=== PATIENT | male | born 1960 | race Caucasian/White ===

== ENCOUNTER 2025-03-07 10:09 | Outpatient (REF) | payer BC, SELFPAY ==
--- NOTE | ~2025-03-07 | MM_ITS ---
EXAMINATION: MM DIAGNOSTIC DIGITAL BREAST TOMOSYNTHESIS, BILATERAL CLINICAL INFORMATION: Patient had previous left upper outer quadrant redness and swelling which has since gone away patient is back to normal today. COMPARISON: Mammography: Comparison is made with relevant prior exams. TECHNIQUE: Digital breast mammography with tomosynthesis is performed in both the craniocaudal and mediolateral oblique views along with computer-aided detection (CAD). FINDINGS: Right: No suspicious masses calcifications or other abnormal findings. Left: There is trace retroareolar gynecomastia. Otherwise no suspicious masses calcifications or other abnormal findings. Results are discussed with the patient at time of visit. MM/MM tomosynthesis diagnostic BI IMPRESSION: Right: Negative. Left: Trace retroareolar gynecomastia. Benign. No other suspicious findings. ASSESSMENT: BI-RADS BI-RADS 2 - Benign Findings RECOMMENDATION: Recommend clinical evaluation and follow-up. Electronically signed by: Love Bernard DO 03/07/2025 11:28 AM EDT
--- OUTSIDE RECORDS SUMMARY | 2025-03-07 11:04 | XMS_ITS | Data Portability ---
Author Organization LORI Selvin [facility], [facility] Address [address] [place] [address] Care Team Providers Care Circus Trainer Name Role Phone DORA CHAMPION Primary Care Provider Assessment Encounter Date Assessment Date Assessment LastModified by Organization Details LastModified Time 03/24/2024 03/24/2024 Dx:rule out medial meniscal tear left knee Interval History:63-year-o ld gentle status post left knee arthroscopy about one half years ago complains of medial sided knee pain. Review of photos from surgery, no significant arthritic wear found. SocHx: nonsmoker, non drinker ROS: negative Past Medical/Surgical History/Meds/Yury rgies reviewed and charted. Physical Exam: afebrile, vital signs stable, in no apparent distress, oriented to person/place/time . Gait:symmetric skin: intact, no erythema. Heart RRR. Lungs clear Abdomen soft, nontender.mini leftKNEE: no redness, warmth, deformity Effusion estimated 0cc. Atrophy none Range of Motion 0-130 degrees. Strength 5/5 all muscle groups. Kaylyn negative. Pivot Shift negative Varus/Valgus/Post erior laxity testing: negative. Joint Line Tenderness: medial. Patellofemoral crepitus absent. Contralateral knee: no deformity, no effusion, full motion, no laxity, no joint line tenderness, no patellar crepitus. New Studies: radiographs show good preservation of joint space Impression:left knee medial meniscal tear Plan: 1.MRI ordered to rule out meniscal pathology, follow-up subsequent to discuss findings and options. [facility] speech recognition solutions executive security software was used to create portions of this document. An attempt at proofreading has been made to minimize errors. Please call for corrections. [email or web address] Not available 03/24/2024 15:24:46 10/17/2024 10/17/2024 Chief Complaint: Recurrent right shoulder pain status post previous right shoulder rotator cuff repair, recurrent left knee pain status post previous partial medial meniscectomy HPI: Patient is a 63-year-old active male who today regarding recurrent right shoulder pain over the past couple months. He is currently 15 months status post previous right shoulder arthroscopic rotator cuff repair and related procedures performed by myself back in June 2023. He did very well after that surgery. He has had some recurrent achiness to his shoulder with lifting activities. No new injury or trauma. He also has a history of previous left knee partial medial meniscectomy performed back in 2021 by my partner, Dr. Almeida. He did fairly well after that surgery, with recurrent left knee pain over the past year. Did review his operative photos from that surgery and there was a substantial tear requiring a significant loss of meniscal volume. I independently reviewed the MRI of the left knee from 2023 revealing chondral thinning to the mid weightbearing portion along with significant volume loss of the mid body medial meniscus status post previous partial meniscectomy. He isolates most of his pain was medial knee. No new injury or trauma. Past medical, surgical, family and social history; Medications, Allergies and 12-point review of systems have been reviewed, updated and charted. Physical Examination: Height and weight as noted in chart. Constitutional: Patient pleasant, well appearing and in NAD. Mental status: Patient is alert and oriented to person, place and time. No short-term memory deficits. Psychiatric: Mood and affect are appropriate. Head: Normocephalic and atraumatic. Exterior inspection of the ears and nose was unremarkable. Hearing grossly intact. Eyes: Sclera are not blue. keyboarding clerk II-XII are grossly intact. Full extraocular motion. Neck: Supple with age-appropriate ROM. No tracheal deviation. No obvious JVD. Respiratory: Non-labored breathing. Symmetric excursion. No audible wheezing or crackles. Skin: No rashes, lesions, wounds to the upper extremities. Normal turgor and coloration. Musculoskeletal: On examination of the right shoulder, there is no effusion, erythema or ecchymosis. Active shoulder elevation 175 and external rotation to 50 . 5/5 strength in rotator cuff testing. Positive impingement signs. On examination of the left knee, there is no effusion, erythema or ecchymosis. Range of motion from 0-130 . His knee is grossly stable ligamentously. There is tenderness to palpation along the medial joint line. Diagnostic imagin views of the right shoulder, Grashey, scapular outlet and axillary views were ordered, obtained and reviewed today here [facility]. No acute fractures or dislocations. Evidence of previous partial acromioplasty and distal clavicle excision noted. Normal glenohumeral joint space. Normal acromion humeral distance. Procedure: Injection of Steroid and Anesthetic, Subacromial Space All reasonable risks and benefits of injection were discussed. Risks include bleeding, infection, non-relief of symptoms, recurrence of symptoms, allergic type reaction, scarring, fat atrophy, and hyperglycemia. After obtaining consent, the right posterior shoulder was prepped in sterile fashion using an alcohol swab. The skin was anesthetized with ethyl chloride spray, wiped again with alcohol, and an injection of 1cc of Kenalog 40 and 4cc s of Lidocaine 1% was performed using a 22-gauge needle into the subacromial space. The medication flowed freely and the patient tolerated this procedure well. The patient was instructed to avoid strenuous activity following the injection for approximately 24 to 48 hours, ice the area as needed and then a gradual return to normal activities is allowed. Procedure: Injection of Steroid and Anesthetic, Knee Joint All reasonable risks and benefits of injection were discussed. Risks include bleeding, infection, non-relief of symptoms, recurrence of symptoms, allergic reaction, scarring, fat atrophy, and hyperglycemia. After obtaining verbal consent, the left lateral knee was prepped in sterile fashion using an alcohol swab. The skin was anesthetized with ethyl chloride spray, wiped again with alcohol, and an intraarticular injection of 1cc of Kenalog 40 and 4cc s of Lidocaine 1% was performed using a 22-gauge needle into the superior lateral aspect of the suprapatellar pouch of the knee. The medication flowed freely into the joint and the patient tolerated this procedure well. The patient was instructed to avoid strenuous activity following the injection for approximately 24 to 48 hours, ice the area as needed and then a gradual return to normal activities is allowed. Impression and Plan: 63-year-old male with recurrent right shoulder and left knee pain doing normal daily activities status post previous right shoulder rotator cuff repair and left knee partial medial meniscectomy surgeries. He has very good strength on rotator cuff assessment today. I do think that his symptoms are treatable to recurrent right shoulder impingement/bursi tis and I have no concern for recurrent rotator cuff tear based on his exam and history. Regarding his left knee, he did have a substantial portion of his mid body medial meniscus removed given a severe tear and does demonstrate chondral thinning based on his most recent MRI from 2023 with likely progressive medial compartment arthrosis. I discussed options and recommended a conservative course. This included a subacromial injection of steroid to the symptomatic shoulder and intra-articular cortisone injection to the symptomatic knee today that the patient tolerated very well. I stressed the importance of activity modification with avoidance of exacerbating activities including heavy lifting overhead or lifting heavy away from the body. I discussed good lifting mechanics. I also recommended a low-dose oral anti-inflammatory such as ibuprofen dyyt-gke-cestzbt and/or Tylenol as needed. I also refer the patient for an economy hinged knee brace to provide compressive support and to assist with activities of daily living. Should symptoms fail to improve and/or recur despite these conservative measures over the next 6-8 weeks, I recommend they call back for another visit. All questions and concerns were addressed. Today's visit involved examining the patient, reviewing the history, reviewing the radiographic studies, counseling the patient regarding treatment options, and the administrative tasks including placing orders, preparing patient information and home handouts and preparing the visit note. This note was generated with [facility] speech recognition solutions executive security dictation software. Please excuse any errors that may have been overlooked during review of this note. Sometimes, these errors may affect the content or meaning of a given sentence. Please call for corrections. [email or web address] Not available 10/17/2024 14:07:57 Plan of Treatment Reminders Order Date Submit Date Provider Last Modified By Organization Details Last Modified Time Details Appointments None recorded. Lab None recorded. Referral None recorded. Procedures None recorded. Surgeries None recorded. Imaging XR, shoulder, 2 or more view - rm 218 rt shldr cz protocol 2024 025 [email or web address] [address] [facility], [address], [place], [address], 03/04/202 5 17:51:25 XR, knee, 4 or more view - 4v lt knee room 213 2023 024 [email or web address] [facility] [address], [address], [place], [address], 12:24:39 Medication Orders None recorded. Patient TargetsNo targets recorded. Patient InstructionsNo instructions recorded. Reason for Referral None Reported. Results Created Date Observation Date Name Description Value Unit Range Abnormal Flag Note LastModifiedBy Organization Detail LastModifiedTime 03/24/20 24 03/24/2024 XR, knee, 4 or more view [email or web address] ?Encry pted=s hAaTro YD8dLq bEUv6g %2BXZw aYqtaq 0bqfl% 2Fg9IQ a4ajBk vP9nXo QUaueC m3YtLR FvZlg JJ8mAn HZtai3 0p1087 AC0Kob XiFV6X eUC8mr 84%3D INTERFACE [facility] [address], [place], [address], 03/24/2024 14:50:22 03/24/20 24 03/24/2024 XR, knee, 4 or more view [email or web address] ?Encry pted=s hAaTro YD8dLq bEUv6g %2BXZw aYqtaq 0bqfl% 2Fg9IQ a4ajBk vP9nXo QUaueC m3YtLR FvZl JJ8mAn HZtai3 6r6196 AC0Kob XiFV6X eUC8mr 84%3D INTERFACE [facility] [address], [place], [address], 03/24/2024 14:50:24 03/31/20 24 03/31/2024 MRI, knee, w/o contr ast [facility] Access ion Number : [id number] Rusty preciado Name: [place] , [place] Record Number : [id number] Date of : 1960 Date of Exam: 2023 Referr ing Physic michelle: Corset ti, Yogesh [facility] [address] [place] [address] Exam: MR Knee (C-) CPT 32790 - Left Room Descri ption: [facility] 3.0T Histor y: Knee pain with decrea sed range of motion , questi on medial menisc al tear. The patien t report s modera te to severe medial consta nt left knee pain with sympto ms not improv ing after surger y. Histor y of menisc al surger y a few months ago. Techni que: MRI of the left knee was perfor med withou t intrav enous contra st. Compar michelle: Left knee MRI dated 022. Findin gs: Joint effusi on: No joint effusi on is presen t. There is postop erativ e change in Hoffa' s fat pad is unrema rkable . There is a thin elonga jose alfredo Iqbal' s cyst which extend s is a multil obulat ed cystic struct ure along the panel maker ior medial aspect of the knee. Menisc i: There is diminu tive appear ance of the medial menisc al body with free margin trunca tion compat ible with interv al partia l menisc ectomy . There is vertic al signal extend ing into the body of the medial menisc us (image 8 of series 4 and image 31 of series 3). Intram enisca l increa sed signal throug hout the remain kristie of the panel maker ior third of the medial menisc us appear s to have been presen t previo usly. The latera l menisc us appear s intact . Tendon s and ligame nts: The ACL and PCL are intact . The collat eral ligame nts are unrema rkable . The ilioti bial band is unrema rkable . The extens or mechan ism appear s normal . Articu lar cartil age: There is chondr al thinni ng in the weight bearin g portio n of the medial compar tment. Articu lar cartil age in the latera l compar tment appear s unifor m in thickn ess withou t focal defect . Mild chondr al thinni ng at the patell ar apex is seen. No trochl ear chondr al defect s. Bone: The bone and bone marrow are normal . Impres yin: 1. Eviden ce of interv al partia l medial menisc ectomy with focal vertic al signal extend ing into the residu al medial body, which may reflec t small free margin tear. 2. Mild degene rative change . Electr onical ly Signed By: Neha Higgins ra, MD [facility] ([facility]) [address], [place], [address], 03/31/2024 15:59:28 04/14/20 24 04/29/2023 imagi ng/di agnos tic resul t No observ ation record ed. [email or web address] Not Available 03/18 07:59:27 04/14/20 24 05/15/2022 imagi ng/di agnos tic resul t No observ ation record ed. [email or web address] Not Available 03/18 07:59:37 10/18/19 25 10/17/2024 XR, shoul kristie, 2 or more view [email or web address] ?Encry pted=s hAaTro YD8dLq bEUv6g %2BXZw aYqtaq 0bqfl% 2Fg9IQ a4ajBk vP9nXo QUaueC m3YtLR FvZlgJ JJ8mAn HZtai3 0r0927 AC0Kqb XqHU6W hKiQtr MwF INTERFACE [facility] [address], [place], [address], 10/17/2024 13:40:50 10/18/19 25 10/17/2024 XR, shoul kristie, 2 or more view [email or web address] ?Encry pted=s hAaTro YD8dLq bEUv6g %2BXZw aYqtaq 0bqfl% 2Fg9IQ a4ajBk vP9nXo QUaueC m3YtLR FvZlgJ JJ8mAn HZtai3 7z3211 AC0Kqb XqHU6W hKiQtr MwF INTERFACE [facility] [address] [facility] [address], [place], [address], 10/17/2024 13:40:52 Result Notes Documentation Provider Name and Address Organization Details Recorded Time Xr, Knee, 4 Or More View : [email or web address] Encrypted=dvFoJpiGF1qDxcT Uv6g%8AZQvcAqqom0prji%2Fg 0TAe1pgSkeU5yGdWHbeaSq3Jp ZLCaDjkAAY9dUeADiap05l582 2CX2VavNeDZ4JwSG8fh47%3D Not Available [facility] 03/24/2024 14:50:23 Xr, Knee, 4 Or More View : [email or web address] Encrypted=iuVrIhiAN4fTacL Uv6g%8GGHiwMvhqu6agzu%2Fg 7RXm2ngHanO4kYbFOjyxQt3Yg BGIjKjfBXZ0sAjJPkpj50s432 3RP3PnoMoNP1WvAR7kb63%3D Not Available [facility] 03/24/2024 14:50:24 Mri, Knee, W/o Contrast : [facility] Accession Number: [id number] Patient Name: Richie Alvarado Date of : 1960 Date of Exam: 03-31-2024 Referring Physician: Yogesh Almeida [address] [facility] [facility] [facility] [address] [place] [address] Exam: MR Knee (C-) CPT 21850 - Left Room Description: [facility] 3.0T History: Knee pain with decreased range of motion, question medial meniscal tear. The patient reports moderate to severe medial constant left knee pain with symptoms not improving after surgery. History of meniscal surgery a few months ago. Technique: MRI of the left knee was performed without intravenous contrast. Comparison: Left knee MRI dated 05/15/2022. Findings: Joint effusion: No joint effusion is present. There is postoperative change in Hoffa's fat pad is unremarkable. There is a thin elongated Iqbal's cyst which extends is a multilobulated cystic structure along the posterior medial aspect of the knee. Menisci: There is diminutive appearance of the medial meniscal body with free margin truncation compatible with interval partial meniscectomy. There is vertical signal extending into the body of the medial meniscus (image 8 of series 4 and image 31 of series 3). Intrameniscal increased signal throughout the remainder of the posterior third of the medial meniscus appears to have been present previously. The lateral meniscus appears intact. Tendons and ligaments: The ACL and PCL are intact. The collateral ligaments are unremarkable. The iliotibial band is unremarkable. The extensor mechanism appears normal. Articular cartilage: There is chondral thinning in the weightbearing portion of the medial compartment. Articular cartilage in the lateral compartment appears uniform in thickness without focal defect. Mild chondral thinning at the patellar apex is seen. No trochlear chondral defects. Bone: The bone and bone marrow are normal. Impression: 1. Evidence of interval partial medial meniscectomy with focal vertical signal extending into the residual medial body, which may reflect small free margin tear. 2. Mild degenerative change. Electronically Signed By: Neha reaves [place] - [facility] 03/31/2024 15:59:28 Xr, Shoulder, 2 Or More View : [email or web address] Encrypted=ykOqGtuEB8nKhdP Uv6g%0RVUakXtwhu7xybd%2Fg 5JCd3wfNgvU9pAqHZfjuOo6Mz SZIyRqaENT5kCrQErzn57t951 2OA2JgbUyGI7ZiPpZjgTsB Not Available [facility] 10/17/2024 13:40:51 Xr, Shoulder, 2 Or More View : [email or web address] Encrypted=rzTbCfbOX3iBawT Uv6g%7YBGueLlvjl1lgqh%2Fg 2YIb4ffVguP8nZiWBvhdVu4Aw ZPCrEmbPSS7hAwXBxxc44t432 1SV2NhfRmHX3GeTsOdhBwG Not Available [facility] 10/17/2024 13:40:53 Problems Name Problem SNOMED Code Status Onset Date Resolution Date Notes Provider Name and Address Organization Details Recorded Time No complaints 487579805 Active Status : 'I'; Not Available [facility] 4 09:16:41 Tear of medial meniscus of knee 433967129 Active 2023 ROBIN Henning'ANGELLA [facility] 4 16:18:12 Pain of left knee joint 4792263668954 07 Active 2023 Rochelle Maradiaga PA-C [address], [place], [address] , [facility] 16:19:05 Problem Notes None recorded. Procedures Surgical History Date Name Laterality Status Provider Name and Address Organization Details Recorded Time 5 Sports Knee 4&1 completed Jose Holloway MD [address], [place], [address], [facility] 10/17/2024 14:08:16 5 Sports Shoulder completed Jose Holloway MD [address], [place], [address], [facility] 10/17/2024 14:08:11 4 Sports Knee 4&1 completed Rochelle Maradiaga PA-C [address], [place], [address], [facility] 05/15/2024 16:17:56 Imaging Results None recorded. Procedure Notes None recorded. Medical Equipment None Reported. Allergies No known drug allergies Medications Name Sig Start Date Stop Date Status Note LastModified by Organization Details LastModified Time atorvastati n 20 mg tablet TAKE ONE TABLET BY MOUTH EVERY DAY active Not Available Not Available No t Available ondansetron HCl 4 mg tablet TAKE ONE TABLET BY MOUTH EVERY 6 TO 8 HOURS NEEDED FOR NAUSEA 11/08 completed Not Available Not Available Not Available citalopram 20 mg tablet TAKE ONE TABLET BY MOUTH EVERY DAY active Not Available Not Available No t Available pseudoephed rine-guaife nesin ER 80-700 mg tablet,exte nded release DO NOT DRIVE WHILE ON THIS MEDICATIO N, 836.0 07/09 completed Statu s: 'Disc ontin ued'; Not Available Not Available Not Available pramipexole 0.125 mg tablet TAKE TWO TABLETS BY MOUTH DAILY AT BEDTIME active Not Available Not Available No t Available naproxen 500 mg tablet TAKE ONE TABLET BY MOUTH TWICE A DAY FOR 5 DAYS 11/08 completed Not Available Not Available Not Available oxycodone 5 mg tablet TAKE ONE TABLET BY MOUTH EVERY 4 TO 6 HOURS NEEDED FOR PAIN DIRECTED. DO NOT DRIVE WHILE TAKING THIS MEDICATIO N 11/08 completed Not Available Not Available Not Available testosteron e 50 mg/5 gram (1 %) transdermal gel APPLY 4 PACKETS EVERY DAY active Not Available Not Available No t Available oxycodone HCl-oxycodo ne-ASA as directed 1 Tab po q 4-[address] NOT DRIVE WHILE TAKING THIS MEDICATIO N 11/08 completed Statu s: 'Curr ent'; Not Available Not Available Not Available testosteron e 20.25 mg/1.25 gram per pump act.(1.62 %) transdermal gel APPLY THREE PUMPS TO THE SKIN EVERY DAY active Not Available Not Available No t Available Vitals Date Recorded Body height Body mass index (BMI) Body weight Provider Name and Address Organization Details Last Updated DateTime 10/17/2024 175.26 cm 25.1 kg/m2 98270.7 g KATY ROSE [facility] 10/17/2024 13:35:41 Date Recorded Body height Body mass index (BMI) Body weight Provider Name and Address Organization Details Last Updated DateTime 11/09/2023 175.26 cm 25.1 kg/m2 04753.7 g WILLIAM WADSWORTH [facility] 11/09/2023 13:18:49 Date Recorded Body height Body mass index (BMI) Body weight Provider Name and Address Organization Details Last Updated DateTime 03/24/2024 175.26 cm 25.1 kg/m2 44302.7 g ZAIN AIKEN [facility] 03/24/2024 14:40:58 Date Recorded Body height Body mass index (BMI) Body weight Provider Name and Address Organization Details Last Updated DateTime 05/15/2024 175.26 cm 25.1 kg/m2 27763.7 g ROBIN OCONNOR [place] [facility] 05/15/2024 15:38:18 Social History None recorded. Functional Status None recorded. Mental Status None recorded. Family History Nothing Reported. Medical History Condition Response Allergies/Hayfever N Coronary Artery Disease N Anxiety/Depression Y Emphysema N Thyroid Problems N COPD N Pacemaker N Kidney/Bladder Problems N Anemia N Vascular Disease N Heart Trouble N Gastrointestinal Disease N Heart Attack (GA) N Diabetes N Autoimmune disease N Bleeding Disorder N Orthotics N Arthritis Y Seizures/Epilepsy N Blood Clot N AIDS/HIV N Congestive Heart Failure (CHF) N Acid Reflux (GERD) Y Cancer N Stroke N Asthma N Peripheral Vascular Disease N Sleep Apnea N Hepatitis N Heart Disease N Rheumatoid Arthritis N Arrhythmia N Pulmonary Embolism N Headaches N Fibromyalgia N Hypertension N Osteoporosis N Past Encounters Encounter ID Performer Location Encounter Start Date Encounter Closed Date Diagnosis/Indication Diagnosis SNOMED-CT Code Diagnosis ICD10 Code Diagnosis Note [id number] Rochelle Maradiaga PA-C [facility] [address] [place] [address] 11/09/2023 13:10:17 11/23/2023 15:10:03 Full thickness rotator cuff tear [id number] M75.121 Plan: At this point in time patient will continue working with physical therapy until discharged . Continue with dilligent home exercise program thereafter . No heavy lifting anything greater than 10 lbs until 6 months postop at which point patient may gradually progress activities as tolerated with return to baseline level of function. Did stress the importance of allowing appropriat e healing time before returning to heavy lifting although he does admit he has been lifting and doing activities as tolerated. Discussed improvemen ts in pain, function and strength will continue for up to 18 months after surgery. Patient will follow up as needed. Please call the office if symptoms worsen or do not continue to improve. All questions and concerns were addressed and answered. [id number] MD [facility] [address] [place] [address] 03/24/2024 13:35:42 04/14/2024 12:24:39 Pain of left knee joint 4052707069 36546 M25.645 [id number] Rochelle Maradiaga PA-C [facility] [address] [facility] [place] [place] [address] 05/15/2024 15:10:00 06/09/2024 10:47:27 Pain of left knee joint [id number] 23570 M25.562 Reviewed patient's imaging and exam findings in detail with him. Reviewed that the MRI does not demonstrat e any overt/carmen k meniscal tearing but does demonstrat e some new free edge fraying as well as postsurgic al changes. Would recommend exhausting conservati ve treatment efforts prior to considerat ion of operative interventi on. Revision partial medial ectomy would remove even more of the tissue putting him at higher risk for progressiv e arthritis. Recommende d cortisone injection today accompanie d by hinged knee brace to prevent pivoting episodes and aggravatio n of his symptoms. Encourage low impact exercise program such as stationary biking, swimming or rowing. All questions and concerns were addressed and answered today. Follow up as symptoms dictate moving forward. The patient is ambulatory , but has weakness and/or instabilit y of their extremity which requires stabilizat ion from this semi-rigid /rigid orthosis to improve their function.V erbal and written instructio ns for the use and applicatio n of this item were given. Patient was instructed that should the brace result in increased pain, decreased sensation, increased swelling or an overall worsening of their medical condition, to please contact our office immediatel y. Tear of me dial meniscus of knee [phone] S83.242A [id number] MD CARLO Tran [address] [place] [address] 10/17/2024 13:29:07 11/02/2024 08:28:44 Pain of right shoulder joint [id number] M25.511 Arthritis of left knee [id number] M17.12 Osteoarthr itis of left knee joint [id number] 52576 M17.12 Bursitis o f right shoulder [id number] 62370 M75.51 Health Concerns Section Related Observation LastModified by Organization Detai ls LastModified Time None Recorded Concern Status LastModified by Organization Details LastModified Time None Recorded Advance Directives Directive None Recorded Payers Insurance Date Sequence Insurance Name Policy Number Policy Jaramillo Covered Member ID Jaramillo Member ID Guarantor Name 11/02/[address] [facility]) [id number] Nichole Alvarado [id number] Nichole Alvarado Notes Date Note Type Note Provider Name and Address Organization Details Recorded Time 11/09/2023 text/html I am seeing the patient under the general supervision of Dr. Holloway who was available but who did not see the patient. Date of surgery: 07/14/23Surgeon: Dr. HollowayProcedure: right shoulder arthroscopic rotator cuff repair of the supraspinatus, arthroscopic distal clavicle excision, subacromial decompression with partial acromioplasty and biceps tenotomy performed on 07/14/2023. Patient presents today 4 months status post shoulder surgery noted above. Overall doing well. Patient continues to work with physical therapy per Dr. Holloway's standard protocol. Has minimal pain other than with sleeping and throwing activities. He does admit he has been lifting as tolerated and has returned to his baseline activities but reports no problems or weakness. No new fall, trauma or injury. No numbness, tingling, fevers, chills or other constitutional symptoms reported. Rochelle Maradiaga PA-C [address] [facility] [address], [place], [address], [facility] 11/09/2023 13:30:04 05/15/2024 text/html I am seeing the patient under the general supervision of Dr. Romero who was available but who did not see the patient. HPI: Patient was last seen by Dr. Almeida for chief complaint of left knee pain. He is status post previous partial medial meniscectomy with Dr. Almeida. A new MRI was ordered to evaluate for recurrence of medial meniscus tear. New MRI from March 31 demonstrates postsurgical changes consistent with prior partial medial meniscectomy with new vertical free edge fraying. Mild degenerative changes, no new tear. Diagnostic imaging: MRI was independently reviewed during today's interview and examination and demonstrates postsurgical changes consistent with prior partial medial meniscectomy, mild degenerative changes and new vertical free edge fraying of the meniscal body remnant. Rochelle Maradiaga PA-C [address] [facility] [address], [place], [address], [facility] 05/15/2024 19:00:16
--- OUTSIDE RECORDS SUMMARY | 2025-03-07 11:04 | XMS_ITS | Encounter Summary ---
Author Organization [facility] Address [address] [address] Phone Care Team Providers Care Tire Finisher Name Role Phone Bereket Jackson MD Primary Care Provid er Encounter Details Date Type Department Care Team (Late st Contact Info) Description 09/23/2018 Procedure Pass OR Admitting Dept - Virtual Department [address] [place] [id number] Social History Tobacco Use Types Packs/Day Years Used Date Smoking Tobacco: Never Smokeless Tobacco: Never Alcohol Use Standard Drinks/Week Comments No 0 (1 standard drink = 0.6 oz pur e alcohol) Sex and Gender Information Value Date Recorded Sex Assigned at Male 05/19/2022 7:26 PM EDT Legal Sex Male 9:46 PM EDT Gender Identity Male 05/19/2022 7:26 PM EDT Sexual Orientation Straight 05/19/2022 7: 26 PM EDT documented as of this encounter Plan of Treatment Not on file documented as of this encounter Visit Diagnoses Not on filedocumented in this encounter Care Teams Tire Finisher Relationship Specialty Start Date End Date Bereket Jackson MD [address] [facility] [address] [place] [phone] PCP - General 09/23/18 documented as of this encounter Additional Source Comments The information contained in this document represents components of the legal health record. It is not the complete legal health record.[facility]
--- OUTSIDE RECORDS SUMMARY | 2025-03-07 11:04 | XMS_ITS | Clinical Summary ---
Author Organization [facility] Address [address] [place] [address] Care Team Providers Care Em Physician Name Role Phone Unavailable Primary Care Provider Unavailabl e Social History Tobacco Use Types Packs/Day Years Used Date Smoking Tobacco: Never Assessed Sex and Gender Information Value Date Recorded Sex Assigned at Not on file Gender Identity Not on file Sexual Orientation Not on file Job Start Date Occupation Industry Not on file Not on file Not on file Plan of Treatment Health Maintenance Due Date Last Done Comments Hepatitis C Screening 1960 COVID-19 Vaccine (#1) 05/09/1962 Depression Screening 1973 Preventative Health Evaluation 11/07/1979 DTap / Tdap / Td (1 - Tdap) 1980 Colon Cancer Screening (Colonoscopy) 2006 Shingrix-Zoster Vaccine (1 of 2) 11/07/2011 Influenza Vaccine (#1) 2025 RSV Adult > 60+ Yrs or Pregn ant (1 - 1-dose 75+ series) 2036 Hepatitis B Vaccines Aged Out No long er eligible based on patient's age to complete this topic Pneumococcal Vaccine Aged Out No long er eligible based on patient's age to complete this topic RSV Ped < 20 months Aged Out No longe r eligible based on patient's age to complete this topic
== END 2025-03-07 10:10 | disposition home or self-care (01) ==
LOC: HO.MAMMO 10:09
PROVIDERS: PCP Internal Medicine; Visit Provider Nurse Practitioner Family
DX: N64.4 Mastodynia (principal)
CPT/HCPCS: 77062; 77066

== ENCOUNTER → 2025-03-07 11:00 | Outpatient (BNV) | payer BC, SELFPAY | PROVIDERS: PCP Internal Medicine; Visit Provider Internal Medicine | DX: N62 Hypertrophy of breast (principal) | CPT/HCPCS: 77062; 77066 ==